=== PATIENT | female | born 1960 | race African-American/Black ===

== ENCOUNTER 2021-05-08 07:55 | Emergency (ER) | payer MEDICAID ==
[~2021-05-08] VITALS: Ht 162.6 cm; Wt 86.8 kg
[~2021-05-08 07:55] MED LIST: ACTOS30 MG PO; ASPIRIN 81M81 MG/TA2; ASPIRIN 81M81 MG/TA2 PO; BACTRIM DS 8001 TAB PO; COREG 3.123.125 MG/T PO; GLIPIZIDE5 MG PO; GLUCOPHAGE1000 MG PO; GLUCOTROL 5M5 MG/TAB PO; GLUCOTROL XL5 MG/TAB PO; HCTZ 25MG TAB25 MG PO; HCTZ12.5TAB PO; JANUVIA50 MG PO; LIPITOR 40MG TA40 MG PO; LISINOPRIL10 MG PO; NAPROSYN500 MG PO; NO HOME MEDICATIONS; NORCO 325 MG-51 TAB PO; NORVASC 10MG10 MG PO; NORVASC2.5 MG PO; PEPCID 20MG TAB20 MG PO; PLAVIX 75MG TAB75 MG PO; PRINIVIL10 MG PO; TESSALON PERLE200 MG PO; ULTRAM 50MG TAB50 MG PO; UNABLE; ZESTRIL30 MG PO; ZOCOR 20MG20 MG PO
[2021-05-08 07:56] VITALS: TEMP 98.2
[2021-05-08 09:42] LABS: BASO % 0.5 % (0.0-2.0); EOS # 0.2 (0.0-0.7); EOS % 3.2 % (0-4.0); GRAN # 3.6 (1.4-6.5); GRAN % 54.8 % (42.2-75.2); HEMATOCRIT 35.8 % (37.0-47.0); HEMOGLOBIN 11.5 g/dl (12.5-16.0); LYMPH # 2.2 (1.2-3.4); LYMPH % 33.3 % (20.0-51.0); MEAN CELL VOLUME 98 fl (80.0-100.0); MEAN CORPUSCULAR HEMOGLOBIN 32 pg (27.0-31.0); MEAN CORPUSCULAR HGB CONC 32 g/dl (33.0-37.0); MEAN PLATELET VOLUME 10.5 fl (7.4-10.4); MONO # 0.5 (0.1-0.6); PLATELET COUNT 335 K/mm3 (130-400); RED BLOOD COUNT 3.65 M/mm3 (4.10-5.30); REDCELL DISTRIBUTION WIDTH-CV 12.9 % (11.5-14.5)
[2021-05-08 09:49] LABS: PROTHROMBIN TIME 11.5 SECONDS (9.7-12.8)
[2021-05-08 09:56] LABS: ALANINE AMINOTRANSFERASE 10 U/L (4-34); ALBUMIN 4.2 gm/dL (3.5-5.0); ALKALINE PHOSPHATASE 56 U/L (50-136); ANION GAP 7 mmol/L (7-16); AST,SGOT 24 U/L (15-37); BILIRUBIN,TOTAL 0.3 mg/dL (0.0-1.0); BLOOD UREA NITROGEN 37 mg/dL (7-17); CALCIUM 9.6 mg/dL (8.4-10.2); CARBON DIOXIDE 23 mmol/L (22-30); CHLORIDE 105 mmol/L (98-107); CREATININE, serum 1.52 (0.52-1.25); GLUCOSE 189 mg/dL (74-106); POTASSIUM 5.4 mmol/L (3.4-5.0); SODIUM 135 mmol/L (137-145); TOTAL PROTEIN 8.2 gm/dL (6.4-8.2)
[2021-05-08 10:05] LABS: C-REACTIVE PROTEIN < 0.5 mg/dL (0.0-0.9)
[2021-05-08 10:26] LABS: TROPONIN-I < 0.012 ng/mL (0.000-0.035)
[2021-05-08] MEDS ORDERED: PRINIVIL20 MG PO (12:43)
[2021-05-08] MEDS ORDERED: LYRICA 100MG C100 M1 PO (12:43)
[2021-05-08] MEDS ORDERED: JANUVIA 100MG100 MG PO (12:44)
[2021-05-08] MEDS ORDERED: AMARYL 2MG T2 MG/TAB PO (12:45)
[2021-05-08] MEDS ORDERED: ROXICODONE 55 MG/TAB PO (12:45)
[2021-05-08 19:32] VITALS: BP 11/79; PULSE 85
[2021-09-03] MEDS ORDERED: CIPRO 250MG TA250 MG PO (16:48)
== END 2021-05-08 14:33 | disposition short-term general hospital (02) ==
LOC: COL.ER 07:55
PROVIDERS: Emergency Medicine
DX: E11.51 Type 2 diabetes mellitus with diabetic peripheral angiopathy without gangrene (principal); I70.202 Unspecified atherosclerosis of native arteries of extremities, left leg; E11.40 Type 2 diabetes mellitus with diabetic neuropathy, unspecified; N28.9 Disorder of kidney and ureter, unspecified; I10 Essential (primary) hypertension; F17.210 Nicotine dependence, cigarettes, uncomplicated; Z86.73 Personal history of transient ischemic attack (TIA), and cerebral infarction without residual deficits; Z79.899 Other long term (current) drug therapy; Z79.84 Long term (current) use of oral hypoglycemic drugs
CPT/HCPCS: J1644; J7030

== ENCOUNTER 2021-07-22 09:13 | Inpatient (IN) | payer MEDICAID ==
[~2021-07-22] VITALS: Ht 167.6 cm; Wt 84.1 kg
[~2021-07-22 09:13] MED LIST changes: +AMARYL 2MG T2 MG/TAB PO; +JANUVIA 100MG100 MG PO; +LYRICA 100MG C100 M1 PO; +PRINIVIL20 MG PO; +ROXICODONE 55 MG/TAB PO
[2021-07-22 09:39] LABS: COLLECTION METHOD CLEAN CATCH
[2021-07-22 09:57] LABS: BASO % 0.6 % (0.0-2.0); EOS # 0.3 (0.0-0.7); EOS % 3.6 % (0-4.0); GRAN # 4.7 (1.4-6.5); GRAN % 65.6 % (42.2-75.2); LYMPH # 1.5 (1.2-3.4); LYMPH % 20.6 % (20.0-51.0); MEAN CELL VOLUME 95 fl (80.0-100.0); MEAN CORPUSCULAR HEMOGLOBIN 31 pg (27.0-31.0); MEAN CORPUSCULAR HGB CONC 33 g/dl (33.0-37.0); MEAN PLATELET VOLUME 10.9 fl (7.4-10.4); MONO # 0.7 (0.1-0.6); MONO % 9.3 % (1.7-9.3); PLATELET COUNT 344 K/mm3 (130-400); PROTHROMBIN TIME 11.2 SECONDS (9.7-12.8); REDCELL DISTRIBUTION WIDTH-CV 12.5 % (11.5-14.5)
[2021-07-22 10:00] LABS: PARTIAL THROMBOPLASTIN TIME 35.1 SECONDS (26.0-37.0)
[2021-07-22 10:02] LABS: MUCOUS Present /lpf; PH 7 (5-8); SQUAMOUS EPITHELIAL 0-2 /hpf; URINE APPEARANCE Clear; URINE BACTERIA None Seen /hpf; URINE BILIRUBIN Negative (NEGATIVE); URINE BLOOD 1+ (NEGATIVE); URINE COLOR Yellow; URINE GLUCOSE Negative (NEGATIVE); URINE KETONE Negative (NEGATIVE); URINE LEUKOCYTE ESTERASE Negative (NEGATIVE); URINE NITRATE Negative (NEGATIVE); URINE PROTEIN(semi-quant) Negative (NEGATIVE); URINE RBC 0-2 /hpf; URINE UROBILINOGEN Negative (NEGATIVE)
[2021-07-22 10:03] LABS: HEMATOCRIT 30.4 % (37.0-47.0)
[2021-07-22 10:09] LABS: ALCOHOL(ethanol),MEDICAL < 10 mg/dL; C-REACTIVE PROTEIN 0.6 mg/dL (0.0-0.9)
[2021-07-22 10:10] LABS: TROPONIN-I < 0.012 ng/mL (0.000-0.035)
[2021-07-22 10:10] LABS: TRICYCLIC ANTIDEPRESS URINE NEGATIVE
[2021-07-22 11:29] LABS: ALANINE AMINOTRANSFERASE 11 U/L (4-34); ALBUMIN 3.9 gm/dL (3.5-5.0); ALKALINE PHOSPHATASE 45 U/L (50-136); ANION GAP 7 mmol/L (7-16); AST,SGOT 25 U/L (15-37); BILIRUBIN,TOTAL 0.5 mg/dL (0.0-1.0); BLOOD UREA NITROGEN 15 mg/dL (7-17); CALCIUM 8.3 mg/dL (8.4-10.2); CARBON DIOXIDE 28 mmol/L (22-30); CHLORIDE 104 mmol/L (98-107); GLUCOSE 138 mg/dL (74-106); SODIUM 139 mmol/L (137-145); TOTAL PROTEIN 7.7 gm/dL (6.4-8.2)
[2021-07-22 11:32] LABS: POTASSIUM 4.4 mmol/L (3.4-5.0)
[2021-07-22 12:13] LABS: TSH w REFLEX 1.367 uIU/mL (0.350-4.940)
[2021-07-22 14:23] VITALS: BP 139/84; PULSE 84; TEMP 98.7
--- NOTE | 2021-07-22 15:30 | NUR ---
PT ARRIVES TO MEDICAL FLOOR ROOM 353 AT 1425 BY ED STAFF VIA BED. PT A/OX4, PT APHASAIC, PT ABLE TO EXPRESS NEEDS AND USE CALL LIGHT, PT'S RIGHT EYE REMAINS CLOSED, DIFFICULT FOR PT TO KEEP OPEN, NO VISIBLE FACIAL DROOPING AT THIS TIME. PT DENIES PAIN BUT REPORTS GENERAL WEAKNESS,PT ABLE TO AMBULATE TO BED (SLIDE) WITH SBA, MED REC COMPLETE. ASSESMENT COMPLETE. PT ORIENTED TO FACILITY AND ROOM. THIS NURSE REVIWED S/S TO REPORT. PT VERBALIZES UNDERSTANDING. ALL NEEDS MET AT THIS TIME. THIS NURSE WILL CONTINUE TO MONITOR. CALL LIGHT WITHIN REACH.
[2021-07-22 16:39] VITALS: BP 132/63; PULSE 86; TEMP 98.3
--- NOTE | 2021-07-22 18:16 | NUR ---
PT REMAINS A/OX4, VSS, 02 ROOM AIR. RIGHT WEAKNESS NOTED, UNSTEADY GAIT, ALL PT'S QUESTIONS ANSWERED. POC REVIEWED WITH PT. PT VERBALIZES UNDERSTANDING. CALL LIGHT WTIHIN REACH.
[2021-07-22 20:30] VITALS: BP 142/70; PULSE 88; TEMP 98
--- NOTE | 2021-07-22 20:53 | NUR ---
DROWSY AND LETHARGIC. LARGE UNCONTROLLED DIARHEA. NEURO CHECK, ASSESSMENT COMPLETE. NPO UNTIL ST EVALS. BLOOD SUGAR 80, INR. DENIES SOA, CHEST PAIN OR DIZZY. LOWER BACK PAIN CANT RATE. LOVENOX FOR VTE. CALL LIGHT WI REACH. BED IN LOW POSITON. NEEDS MET.
[2021-07-22 23:42] VITALS: BP 140/68; PULSE 75; TEMP 97.9
[2021-07-23 03:44] VITALS: BP 138/70; PULSE 77; TEMP 97.9
--- NOTE | 2021-07-23 05:27 | NUR ---
PT SLEPT THROUGH THE NIGHT WITHOUT INCIDENT. NEEDS MET.
[2021-07-23 06:40] LABS: BASO # 0.1 (0.0-0.2); BASO % 0.7 % (0.0-2.0); EOS # 0.2 (0.0-0.7); EOS % 2.8 % (0-4.0); GRAN # 4.2 (1.4-6.5); GRAN % 60.1 % (42.2-75.2); HEMOGLOBIN 10.4 g/dl (12.5-16.0); LYMPH # 1.8 (1.2-3.4); MEAN CELL VOLUME 96 fl (80.0-100.0); MEAN CORPUSCULAR HEMOGLOBIN 31 pg (27.0-31.0); MEAN CORPUSCULAR HGB CONC 33 g/dl (33.0-37.0); MONO # 0.7 (0.1-0.6); MONO % 10.5 % (1.7-9.3); RED BLOOD COUNT 3.34 M/mm3 (4.10-5.30); REDCELL DISTRIBUTION WIDTH-CV 12.6 % (11.5-14.5)
[2021-07-23 06:42] LABS: PLATELET COUNT 237 K/mm3 (130-400)
[2021-07-23 09:09] LABS: CHOLESTEROL RISK RATIO 2.6
[2021-07-23 09:15] VITALS: BP 129/62; PULSE 78; TEMP 98.4
[2021-07-23 11:41] VITALS: BP 132/58; PULSE 79; TEMP 98.8
--- NOTE | 2021-07-23 13:00 | NUR ---
Marli met with the pt who stated her preference to return home to her apartment once medically sable. The pt is independent on all ALDS and uses a cane,walker sometimes. The pt NK is her daughter, Aminata ph# [phone]. The gets her medications from [facility] and her pcp is through [facility].The pt does not have a DPOA-HC, and is not interested in one at this time. No other needs stated at this time. Marli to await further recommendations and follow up as needed. D/c: Home.
[2021-07-23 15:22] LABS: T3 TOTAL 0.8 ng/mL (0.35-1.93)
[2021-07-23 16:34] VITALS: BP 130/64; PULSE 79; TEMP 99.1
--- NOTE | 2021-07-23 18:20 | NUR ---
PT HAD UNEVENTFUL DAY, THIS NURSE HELPED PT SHOWER, PT HAD DIAHHREA THIS MORNING, MEDICATION ADMINISTERED ORDERED. RIGHT SIDE REMAINS WEAK, RIGHT EYE REMAINS CLOSED AND DIFFICULT TO OPEN. PT INCONINENT OF BOWEL AND BLADDER. PT CLEAN AND LINENS CHANGED. ALL NEEDS MET. CALL LIGHT WITHIN REACH.
[2021-07-23 19:43] VITALS: BP 115/51; PULSE 75; TEMP 99.3
--- NOTE | 2021-07-23 20:33 | NUR ---
ALERT AND OX3. DROWSY- DENIES SOA, CHEST PAIN OR DIZZY. NEURO- RT SIDE WEAKNESS AND EYE NO OPENING. DENIES GENERALIZED PAIN. POC DISCUSSED. PM MEDS GIVEN. CALL LIGHT WI REACH. BED IN LOW POSTION. NEEDS MET.
[2021-07-23 23:55] VITALS: BP 114/61; PULSE 92; TEMP 99.3
[2021-07-24 04:43] VITALS: BP 132/62; PULSE 85; TEMP 99.3
--- NOTE | 2021-07-24 05:08 | NUR ---
Rested through the night without incident. Needs met.
[2021-07-24 07:16] VITALS: BP 138/75; PULSE 93; TEMP 99.1
--- NOTE | 2021-07-24 09:50 | NUR ---
PT TRANSPORTED TO MRI AT 0955 BY EMS VIA WHEELCHAIR.
[2021-07-24 11:57] VITALS: BP 125/62; PULSE 79; TEMP 98.2
--- NOTE | 2021-07-24 12:00 | NUR ---
PT UP TO MEDICAL FLOOR AT 1145 VIA EMS.
--- NOTE | 2021-07-24 13:36 | NUR ---
Initial visit; Patient and family member thanked Construction Project Mgr for looking in on her and offering spiritual care. Patient requested that Construction Project Mgr keep her in her prayers.
--- NOTE | 2021-07-24 14:10 | NUR ---
PT DISCHARGED, PT TRANSPORTED VIA WHEELCHAIR BY MEDICAL STAFF AND ACCOMPANIED BY HER FIANCE. PT PROVIDED DISCHARGE INSTRUCTIONS, PT VERBALIZES UNDERSTANDING. ALL QUESTIONS ANSWERED. ALL NEEDS MET.
[2021-07-24 15:16] VITALS: BP 126/61; PULSE 95; TEMP 99.7
--- NOTE | 2021-07-24 18:18 | NUR ---
PT REMAINS INCONTINENT OF BOWEL AND BLADDER, PT CHANGED, LINENS CHANGED. PT REMAINS WEAK ON THE RIGHT SIDE, MILD RIGHT FACIAL DROOPING WITH RIGHT EYE COMPLETELY CLOSED AND DIFFICULT TO OPEN. PT APPETITE GREAT. 02 REMAINS ROOM AIR. PT DENIES PAIN, N,V,D. ALL NEEDS MET. CALL LIGHT WITHIN REACH.
[2021-07-24 19:25] VITALS: BP 114/67; PULSE 81; TEMP 99
--- NOTE | 2021-07-24 20:00 | NUR ---
Assessment complete. Patient is oriented but is very drowsy; she has just woken up from a nap. She tolerates swallowing medications well. Her right-sided facial droop has improved in her mouth but her right eye remains shut with a slow-reacting pupil. Science Editor strengths are both strong. No edema is noted. Patient denies pain. HR is normal/regular and lungs have wheezes throughout. Call light in reach and bed alarm set, will continue to monitor.
[2021-07-24 22:36] VITALS: BP 126/67; PULSE 79; TEMP 98.4
[2021-07-25 04:00] VITALS: BP 107/61; PULSE 76; TEMP 98.2
[2021-07-25 07:23] LABS: BASO % 0.4 % (0.0-2.0); EOS # 0.2 (0.0-0.7); GRAN # 4.3 (1.4-6.5); GRAN % 59.2 % (42.2-75.2); LYMPH # 1.9 (1.2-3.4); MEAN CELL VOLUME 95 fl (80.0-100.0); MEAN CORPUSCULAR HGB CONC 32 g/dl (33.0-37.0); MEAN PLATELET VOLUME 11.1 fl (7.4-10.4); MONO # 0.8 (0.1-0.6); MONO % 11.1 % (1.7-9.3); PLATELET COUNT 302 K/mm3 (130-400); RED BLOOD COUNT 3.21 M/mm3 (4.10-5.30); REDCELL DISTRIBUTION WIDTH-CV 12.3 % (11.5-14.5)
[2021-07-25 07:25] LABS: HEMATOCRIT 30.6 % (37.0-47.0); HEMOGLOBIN 9.9 g/dl (12.5-16.0); MEAN CORPUSCULAR HEMOGLOBIN 31 pg (27.0-31.0)
[2021-07-25 07:35] LABS: CALCIUM 8.4 mg/dL (8.4-10.2); CREATININE, serum 1.38 (0.52-1.25); POTASSIUM 4.2 mmol/L (3.4-5.0)
[2021-07-25 08:12] VITALS: BP 134/66; PULSE 67; TEMP 98.1
--- NOTE | 2021-07-25 09:00 | NUR ---
Shift assessment complete. Pt lying in bed, A&Ox4. Unable to open right eye but no other facial droop noted. Hand bar pointer equal. Does report still feeling some weakness to right side but muscle strength appears equal bilaterally. Does report some soreness to hips as well, worse w/walking. Hospitalist contacted about orders for pain medication. Continuing to monitor.
[2021-07-25] MEDS ORDERED: PLAVIX 75MG TAB75 MG PO (10:57)
[2021-07-25] MEDS ORDERED: ASPIRIN E.C. 8181 MG PO (10:58)
[2021-07-25 12:29] VITALS: BP 125/65; PULSE 69; TEMP 98
--- NOTE | 2021-07-25 13:06 | NUR ---
Estrellita, IPR Director, reports that she received a consult on the patient and has submitted for auth to the patient's insurance. Awaiting insurance auth.
[2021-07-25 16:06] VITALS: BP 142/66; PULSE 74; TEMP 98.2
[2021-07-25 19:32] VITALS: BP 131/74; PULSE 84; TEMP 98.5
[2021-07-25 23:30] VITALS: BP 135/68; PULSE 74; TEMP 98.3
[2021-07-26 05:04] VITALS: BP 149/73; PULSE 69; TEMP 98.5
[2021-07-26 07:42] VITALS: BP 152/66; PULSE 80; TEMP 98.6
--- NOTE | 2021-07-26 09:22 | NUR ---
Incontinent care provided this morning by this RN and off-going senior systems engineer RN. Patient remains incontinent and had saturated the pull-up, as well as the incontinent pad. Patient was insistent on standing up but was very unsteady. Patient was able to lift her hips for incontinent care. All morning medications administered without difficulty. Patient has no complaints at this time and should go to [facility] today.
[2021-07-26 11:27] VITALS: BP 164/87; PULSE 76; TEMP 98.4
[2021-07-26 14:13] LABS: CALCIUM 9.3 mg/dL (8.4-10.2); CREATININE, serum 1.4 (0.52-1.25); POTASSIUM 4.5 mmol/L (3.4-5.0)
--- NOTE | 2021-07-26 15:07 | NUR ---
Estrellita, IPR Director, reports that she received approval from the patient's insurance and is able to accept the patient today. The patient is to discharge today, 07/26, to [facility]. No additional needs at this time.
[2021-07-26 17:18] VITALS: BP 149/63; PULSE 78; TEMP 98.3
[2021-09-03] MEDS ORDERED: CIPRO 250MG TA250 MG PO (16:48)
== END 2021-07-26 18:46 | DRG 66 ==
LOC: COL.ER 09:13 → MEDICAL 13:24
PROVIDERS: Emergency Medicine; Physician Assistant; Psychiatry & Neurology Neurology; ADMIT Internal Medicine
DX: I63.9 Cerebral infarction, unspecified (principal); E11.319 Type 2 diabetes mellitus with unspecified diabetic retinopathy without macular edema; E78.5 Hyperlipidemia, unspecified; F17.210 Nicotine dependence, cigarettes, uncomplicated; I12.9 Hypertensive chronic kidney disease with stage 1 through stage 4 chronic kidney disease, or unspecified chronic kidney disease; N18.30 Chronic kidney disease, stage 3 unspecified; R47.01 Aphasia; R47.81 Slurred speech; H49.01 Third [oculomotor] nerve palsy, right eye; R29.810 Facial weakness; R29.705 NIHSS score 5; E11.51 Type 2 diabetes mellitus with diabetic peripheral angiopathy without gangrene; Z79.899 Other long term (current) drug therapy; Z79.84 Long term (current) use of oral hypoglycemic drugs; Z79.82 Long term (current) use of aspirin; Z79.891 Long term (current) use of opiate analgesic
CPT/HCPCS: 99232-AI; 99233-AI; 99239; A9585; J1650; J1815; Q9967

== ENCOUNTER 2021-07-26 15:10 | Inpatient (IN) | payer MEDICAID ==
[~2021-07-26] VITALS: Ht 167.6 cm; Wt 81.8 kg
[~2021-07-26 15:10] MED LIST changes: +ASPIRIN E.C. 8181 MG PO
[2021-07-26 20:45] VITALS: BP 1436/77; PULSE 69; TEMP 98.7
[2021-07-27 03:38] VITALS: BP 127/64; PULSE 78; TEMP 98.9
--- NOTE | 2021-07-27 06:40 | NUR ---
Rested well this shift. Denied pain/nausea/shortness of breath. VS remained stable. Incontinent of urine. IPR status patient. Call light in reach/bed alarm on. WIll monitor.
--- NOTE | 2021-07-27 13:23 | NUR ---
Welcomed pt to the Rehab unit. Explained the rehab process & goals. Completed SW assessment w/ pt. She is alert & oriented & able to communicate her needs & wants to others. She has her own teeth & does not wear glasses . She lives alone but plans on moving in w/ her daughter, who has a 2 story home w/ 4 steps to enter w/ handrail on the left. Once in the house pt can live on the main level. The bathroom has a tub/shower w/ curtain & handheld shower head. The toilet is standard height. Pt reports walking w/out a device & was independent w/ her self care. She also reports doing the cooking, housekeeping, laundry, shopping, medication management, & finance management. She has her own r/walker. Pharmacy: [facility] & reports no issues/concerns w/ affording her medication. PCP: Dr. Escalante DPOA: Pt does not have official POA paperwork but would like her daughter, Aminata, to be her novelties sales representative & would like paperwork to complete. Pt had no questions/concerns at this time about her rehab stay. SW will continue to follow to provide support & assist w/ d/c planning.
--- NOTE | 2021-07-27 14:26 | NUR ---
Primary nurse was assisted with [id number] patient care by [facility] student Dalton Lewis and [facility] instructor Karis Ramires MSN, RN
--- NOTE | 2021-07-27 16:55 | NUR ---
PT TRANSFERED TO ROOM 339. REPORT FROM JOSE GASTON. PT IS A/O X3 WITH MILD LEFT SIDED DEFICIT. RIGHT EYE DROOP CLOSED.
[2021-07-27 18:24] VITALS: BP 150/71; PULSE 72; TEMP 97.8
--- NOTE | 2021-07-27 19:13 | NUR ---
RECEIVED CHANGE OF SHIFT REPORT FROM DAY SHIFT NURSE.
--- NOTE | 2021-07-27 21:00 | NUR ---
PATIENT REFUSED SCDs.
--- NOTE | 2021-07-27 23:01 | NUR ---
EXIT ALARMS ON WHEN IN BED, CALL LIGHT WITHIN REACH. ENCOURAGED PATIENT TO HAVE HS SNACK DAILY NEEDED. DENIES CHEST PAIN/SOA. DENIES NUMBNESS/TINGLING TO EXTREMITIES AT THIS TIME.
[2021-07-28 05:16] VITALS: BP 135/79; PULSE 76; TEMP 98.4
--- NOTE | 2021-07-28 06:57 | NUR ---
Report received from ALEK Sung. Patient is sleeping in bed. Call light and bedside table are within reach. Will continue to monitor throughout shift.
--- NOTE | 2021-07-28 07:27 | NUR ---
CHANGE OF SHIFT REPORT GIVEN TO DAY SHIFT NURSE, MARIELLA GASTON.
[2021-07-28 18:19] VITALS: BP 145/71; PULSE 83; TEMP 98.6
--- NOTE | 2021-07-28 19:21 | NUR ---
RECEIVED CHANGE OF SHIFT REPORT FROM DAY SHIFT NURSE.
--- NOTE | 2021-07-29 | NUR ---
PATIENT HAD LARGE EMESIS OF UNDIGESTED FOOD WHEN ATTEMPTING TO EAT HS SNACK, REPORTS NO FURTHER NAUSEA AFTER EMESIS. DENIES CHEST PAIN/SOA SO FAR THIS SHIFT. DENIES NUMBNESS/TINGLING TO EXTREMITIES THIS SHIFT. DENIES ANY DISCOMFORT AT THIS TIME. EXIT ALARMS ON WHEN IN BED WITH CALL LIGHT WITHIN REACH.
[2021-07-29 04:21] VITALS: BP 110/58; PULSE 73; TEMP 98.6
--- NOTE | 2021-07-29 06:55 | NUR ---
Report received from ALEK Montes. Patient is resting in bed. Reported by JUSTYN Murguia that patient's BG was 57 and she gave her orange juice and crackers and will retake BS at 0700. Call light and bedside table are within reach. Will continue to monitor patient throughout shift.
--- NOTE | 2021-07-29 07:12 | NUR ---
CHANGE OF SHIFT REPORT GIVEN TO DAY SHIFT NURSE, MARIELLA GASTON.
--- NOTE | 2021-07-29 15:02 | NUR ---
Patient is in bed resting. Patient has had no episodes of incontinence today. Patient states she still does not know when she has to use the bathroom but sat on toilet until she was able to produce. Call light and bedside table are within reach.
[2021-07-29 18:00] VITALS: BP 135/82; PULSE 73; TEMP 98.1
--- NOTE | 2021-07-29 19:29 | NUR ---
RECEIVED CHANGE OF SHIFT REPORT FROM DAY SHIFT NURSE. EXIT ALARMS ON WHEN IN BED OR UP IN CHAIR. CALL LIGHT WITHIN REACH.
[2021-07-30 05:28] VITALS: BP 110/54; PULSE 72; TEMP 98.4
--- NOTE | 2021-07-30 07:03 | NUR ---
CHANGE OF SHIFT REPORT GIVEN TO DAY SHIFT NURSE, NATHANIEL GASTON. DENIED CHEST PAIN/SOA AND NUMBNESS/TINGLING TO EXTREMITIES THIS SHIFT. EXIT ALARMS IN USE WHEN IN BED OR UP IN CHAIR WITH CALL LIGHT IN PLACE. ENCOURAGED PATIENT TO CONTINUES TO WORK ON GOOD NUTRITIONAL INTAKE.
--- NOTE | 2021-07-30 07:09 | NUR ---
shift report received from ALEK Hernandez
--- NOTE | 2021-07-30 08:15 | NUR ---
physical therapy in to work with patient
--- NOTE | 2021-07-30 09:15 | NUR ---
resting in recliner after therapy, full assessment completed, see interventions for further info
--- NOTE | 2021-07-30 10:30 | NUR ---
remains up in recliner, denies needs
--- NOTE | 2021-07-30 11:20 | NUR ---
assisted back to bed per her rerquest to rest a while
--- NOTE | 2021-07-30 13:04 | NUR ---
ambulating in rodriguez with physical therapy
--- NOTE | 2021-07-30 13:31 | NUR ---
Visited w/ pt, who stated she is doing okay. Inquired how thearpy has been going & was told okay. She did ask SW how long she will be here & told her the team meets 08/01/21, to discuss this & then SW will talk w/ her & her daughter. She seemed fine w/ this plan & had no other questions/concerns.
--- NOTE | 2021-07-30 14:01 | NUR ---
occupational therapy in to work with patient
--- NOTE | 2021-07-30 14:54 | NUR ---
returned fdrom therapy and had scant amount of emesis, states after lunch her tummy was upset, will monitor
--- NOTE | 2021-07-30 15:05 | NUR ---
Admission QIM scores were reviewed by the team. Code of 4 chosen for oral hygiene was determined by team discussion to be the most usual performance before interventions for this patient during the assessment period. Code of 4 chosen for toilet hygiene was determined by team discussion to be the most usual performance for this patient during the assessment period. Code of 3 chosen for toileting transfers was determined by team discussion to be the most usual performance for this patient during the assessment period. Code of 4 chosen for sit to lying was determined by team discussion to be the most usual performance for this patient during the assessment period. Code of 4 chosen for lying to sitting on side of bed was determined by team discussion to be the most usual performance for this patient during the assessment period. Code of 3 for chair/bed to chair transfers was determined by team discussion to be the most usual performance for this patient during the assessment period.--Estrellita Lopez, PD
--- NOTE | 2021-07-30 16:24 | NUR ---
appears to be sleeping, in bed with eyes closed, resp quiet and easy
[2021-07-30 17:32] VITALS: BP 133/73; PULSE 89; TEMP 97.9
--- NOTE | 2021-07-30 19:11 | NUR ---
shift report given to ALEK Webb
[2021-07-31 05:41] VITALS: BP 107/66; PULSE 84; TEMP 98.6
--- NOTE | 2021-07-31 05:42 | NUR ---
PATIENT HAD A MODERATE EMESIS OF PARTIALLY UNDIGESTED FOOD AND MOSTLY THIN LIQUIDS AT THIS TIME, STATES THAT SHE DOES NOT FEEL NAUSEOUS ANYMORE AT THIS TIME
--- NOTE | 2021-07-31 07:05 | NUR ---
Report received by ALEK Webb. Patient is resting in bed and called to use bathroom. Patient had a soft formed BM. Patient continues to c/o pain in thighs. Call light and bedside table are within reach. Will continue to monitor throughout shift.
--- NOTE | 2021-07-31 13:47 | NUR ---
[facility] skilled labor was unable to draw blood from patient.
--- NOTE | 2021-07-31 14:56 | NUR ---
Third clinical laboratory scientist and ALEK Gaston tried to draw blood from patient unsucessfully. This nurse informed the head housekeeper of the situation and for guidance; she was unsure as to how to proceed.
--- NOTE | 2021-07-31 15:20 | NUR ---
Patient has completed all therapies and is resting in bed. Patient denies pain at this time. Call light and bedside table are within reach.
[2021-07-31 16:36] VITALS: BP 118/73; PULSE 81; TEMP 98.3
--- NOTE | 2021-07-31 21:00 | NUR ---
Initial shift assessment done- has been sleeping for the past couple hours and had to wake her for meds/blood sugar,, states feels ok tonight, blood sugar was 142-does not want any snacks tonight, right eye does remain closed when left eye is open- equal hand grasps, Up to bathroom with standby assist w/walker-states having some loose stools- will continue to monitor,,, back to bed- no other requests.
--- NOTE | 2021-08-01 04:24 | NUR ---
Up to bathroom with assist,did have small amount liquid stool,was also incontinent of small amount of stool-- unstaeady gait, using walker/assist,, states having hip pain thats why shes not walking steady--will give Tylenol as ordered. Right eye a little more open this morning. Has been sleeping well tonight between bathroom breaks.
[2021-08-01 05:45] VITALS: BP 113/58; PULSE 79; TEMP 98.7
--- NOTE | 2021-08-01 06:45 | NUR ---
Report received from ALEK Toussaint. Patient is sleeping in bed. Call light and bedside table are within reach. Will continue to monitor throughout shift.
[2021-08-01 09:53] LABS: BASO % 0.5 % (0.0-2.0); EOS # 0.2 (0.0-0.7); EOS % 3.5 % (0-4.0); GRAN # 3.7 (1.4-6.5); GRAN % 58.5 % (42.2-75.2); LYMPH # 1.7 (1.2-3.4); MEAN CELL VOLUME 98 fl (80.0-100.0); MEAN CORPUSCULAR HEMOGLOBIN 31 pg (27.0-31.0); MEAN CORPUSCULAR HGB CONC 32 g/dl (33.0-37.0); MEAN PLATELET VOLUME 10.8 fl (7.4-10.4); MONO # 0.7 (0.1-0.6); MONO % 11.2 % (1.7-9.3); PLATELET COUNT 369 K/mm3 (130-400); RED BLOOD COUNT 3.23 M/mm3 (4.10-5.30); REDCELL DISTRIBUTION WIDTH-CV 12.3 % (11.5-14.5)
[2021-08-01 09:54] LABS: HEMATOCRIT 31.5 % (37.0-47.0)
[2021-08-01 10:12] LABS: CALCIUM 9.4 mg/dL (8.4-10.2); CREATININE, serum 2.08 (0.52-1.25); MAGNESIUM 1.7 mg/dL (1.6-2.3); POTASSIUM 4.9 mmol/L (3.4-5.0)
--- NOTE | 2021-08-01 14:47 | NUR ---
Patient has completed all therapies for the day and is sleeping in bed. Call light and bedside table are within reach.
--- NOTE | 2021-08-01 16:06 | NUR ---
Reviewed the team conference notes w/ pt. She stated that she understood & agreed w/ current level of functioning. Informed her of d/c for next 08/08/21, w/ recommendations of home health PT/OT/ST. Told her the team is also recommending grab bars & tub transfer bench. She did not have any quesitons at this time.
[2021-08-01 17:34] VITALS: BP 103/77; PULSE 81; TEMP 97.7
--- NOTE | 2021-08-01 19:30 | NUR ---
RECEIVED CHANGE OF SHIFT REPORT FROM DAY SHIFT NURSE.
--- NOTE | 2021-08-01 22:30 | NUR ---
PATIENT COMPLAINED OF DIZZINESS AFTER AMBULATING TO BATHROOM, PATIENT WAS SITTING DOWN ONTO TOILET. SKIN DRY, SPEECH CLEAR, PATIENT WITH EYE CONTACT WITH STAFF ON COMMAND AND ANSWERED QUESTIONS APPROPRIATELY WITH DIZZINESS. FSBS CHECKED AT 102 BUT HAD ALSO SIPPED ON DIET SPRITE JUST PRIOR TO FSBS TESTING. PATIENT ENCOURAGED TO HAVE HS SNACK OF 240 ML OJ WITH 1 SLICE JELLIED TOASTED WHITE BREAD. DENIED CHEST PAIN/SOA AND DENIED NUMBNESS/TINGLING TO EXTREMITIES AT THIS TIME.
--- NOTE | 2021-08-02 03:18 | NUR ---
PATIENT SLEEPING, DOES NOT WAKE WHEN ROOM ENTERED BY STAFF ON ROUNDS. BREATHING NONLABORED AND EVEN. EXIT ALARM ON WITH CALL LIGHT WITHIN REACH.
[2021-08-02 05:04] VITALS: BP 106/56; PULSE 75; TEMP 98.8
--- NOTE | 2021-08-02 07:44 | NUR ---
CHANGE OF SHIFT REPORT GIVEN TO DAY SHIFT NURSE, MILY GASTON.
--- NOTE | 2021-08-02 13:05 | NUR ---
Visited w/ pt & inquired if she had any questions about the team conference notes from yesterday. She told SW that she did not. Talked to her about the team's recommendation for home health therapy at d/c & provided her a list of agency's for the [facility].
[2021-08-02 16:55] VITALS: BP 126/85; PULSE 78; TEMP 98.2
[2021-08-03 05:29] VITALS: BP 135/49; PULSE 78; TEMP 98.3
--- NOTE | 2021-08-03 05:45 | NUR ---
ASSISTED TO BR WITH WALKER. FAIRLY STEADY GAIT. INCONTINENT URINE. CHANGED LINENS. BACK TO BED. CALL LIGHT IN REACH BED ALARM SET.
[2021-08-03 16:20] VITALS: BP 122/76; PULSE 74; TEMP 98
--- NOTE | 2021-08-03 21:21 | NUR ---
Patient sleeping in bed upon enter the room. Patient awake easily with voice and touch. Patient denies any pain or discomfort. Scheduled meds given per MAR. Patient denies any needs at this time. Call light in reach. Bed alarms on. Will continue to monitor.
[2021-08-04 04:03] VITALS: BP 148/49; PULSE 71; TEMP 97.8
[2021-08-04 16:49] VITALS: BP 114/69; PULSE 77; TEMP 98.9
[2021-08-04 16:59] LABS: CALCIUM 9.7 mg/dL (8.4-10.2); CREATININE, serum 1.97 (0.52-1.25)
--- NOTE | 2021-08-04 20:00 | NUR ---
PT SLEEPY TONIGHT. DENIES C/O PAIN. NO NEEDS AT THIS TIME. CALL LIGHT IN REACH. BED ALARM SET.
--- NOTE | 2021-08-05 00:49 | NUR ---
ASSISTED PT TO BR. INCONTINENT URINE. ASSISTED CLEAN UP.BACK TO BED.
--- NOTE | 2021-08-05 02:45 | NUR ---
PT HAVING PELVIC PRESSURE W/ VOIDING AND ODOROUS URINE. CALLED EVELINA HEIN. SEE NEW ORDER FOR UAC.
--- NOTE | 2021-08-05 02:50 | NUR ---
UA OBTAINED PER CLEAN CATCH AND SENT TO LAB.
[2021-08-05 03:01] LABS: COLLECTION METHOD CATHETER
[2021-08-05 03:10] LABS: BUDDING YEAST Present /hpf; PH 7 (5-8); SQUAMOUS EPITHELIAL 0-2 /hpf; URINE APPEARANCE Turbid; URINE BACTERIA None Seen /hpf; URINE BILIRUBIN Negative (NEGATIVE); URINE BLOOD 1+ (NEGATIVE); URINE COLOR Yellow; URINE GLUCOSE Negative (NEGATIVE); URINE KETONE Negative (NEGATIVE); URINE LEUKOCYTE ESTERASE 3+ (NEGATIVE); URINE NITRATE Negative (NEGATIVE); URINE PROTEIN(semi-quant) 1+ (NEGATIVE); URINE UROBILINOGEN Negative (NEGATIVE)
--- NOTE | 2021-08-05 03:17 | NUR ---
NOTIFIED LAB THIS RECENT UA WAS CLEAN CATCH. NOT CATHETER OBTAINED.
--- NOTE | 2021-08-05 03:24 | NUR ---
SEE NEW ORDERS FOR MACROBID FOR UTI.
--- NOTE | 2021-08-05 04:12 | NUR ---
NEW ORDER FOR SEPTRA DS INSTEAD OF MACROBID. SEE MAR.
[2021-08-05 05:02] VITALS: BP 136/63; PULSE 69; TEMP 98
--- NOTE | 2021-08-05 07:30 | NUR ---
Assisted pt to the restroom. Reports that she feels as if she needs to urinate, but is unable to go only dribbles. Urine has a very strong odor to it. Pt does well with a walker and stand by assist. No pain complaints. Assisted pt to the chair for breakfast.
--- NOTE | 2021-08-05 07:50 | NUR ---
Pt up for breakfast. Assisted him to the restroom. He did well with standby assist. No pain complaints at this time. Pt dressed and ready for the day. Assisted pt back to the chair for breakfast. Speech is somewhat difficult to understand, but able to make out needs. Chair alarm on and call light within reach
--- NOTE | 2021-08-05 10:49 | NUR ---
Pt resting in bed, even non labored breathing. Bed alarm on and call light within reach
--- NOTE | 2021-08-05 12:16 | NUR ---
Assisted pt to the restroom. She is refusing to sit in the chair for lunch. Was not able to convince her to. Pt back in bed, sitting up eating lunch
[2021-08-05 17:09] VITALS: BP 135/74; PULSE 88; TEMP 97.9
--- NOTE | 2021-08-05 20:00 | NUR ---
PT RESTING. SLEEPING ALOT. ASSISTED TO BR WITH WALKER. INCONT IN BREIFS AND LINENS. HAS UTI. URINE VERY CLOUDY/MUCOUS. VERY ODOROUS. GETTING SEPTRA FOR UTI.
--- NOTE | 2021-08-05 21:00 | NUR ---
ACCUCHECK 70. ASYMPTOMATIC. PROVIDED SANDWICH AND A JUICE FOR HS SNACK.
--- NOTE | 2021-08-06 01:07 | NUR ---
RT EYE LID CONTINUES DROOPING. SPEECH SL DIFFICULT TO UNDERSTAND. PT HAD INCONT LOOSE STOOL. PT ALITTLE MORE UNSTEADY TONIGHT. NO OTHER CHANGES. PT NEEDED ASSIST WITH DONNING NEW BRIEFS OVER FEET UP TO KNEES AND WITH ENSURING GOOD PERIRECTAL HYGIENE.
[2021-08-06 05:24] VITALS: BP 126/67; PULSE 69; TEMP 97.8
--- NOTE | 2021-08-06 06:47 | NUR ---
Report received from ALEK Brennan. Patient is awake and resting in bed. Patient denies pain at this time. Call light and bedside table are within reach. Will continue to monitor patient throughout shift.
--- NOTE | 2021-08-06 12:54 | NUR ---
Follow-up visit; Patient thanked Public Health Technologist for looking in on her again. Kellie says she thinks she is getting better. Public Health Technologist wished her well and God's blessings.
--- NOTE | 2021-08-06 13:14 | NUR ---
GREER attended the patient/family meeting. The patient's daughter, Aminata, was at bedside. Also present was IPR Director, PT, and OT. IPR Director started by explaining the purpose of the meeting. PT/OT then discussed the patient's progress so far. IPR Director informed the patient and Aminata how a discharge date has been set for this Friday, 08/08. The patient has Medicaid and it does not pay for home health therapy. Outpatient PT/OT/ST is being recommended. The patient and Aminata are in agreement to the plan. The team answered all questions. GREER then followed up with the patient and Aminata and informed them that [facility] has all three disciplines. Aminata was in agreement to getting the patient set up there and they would prefer afternoon appointments. GREER contacted Shahla at [facility]. Shahla requests the patient's records and then they will contact this SW to make the appointments. GREER faxed the patient's records to [facility].
--- NOTE | 2021-08-06 15:06 | NUR ---
Patient has completed all therapies for the day and is resting in recliner. Daughter is at bedside. Call light and bedside table are within reach.
--- NOTE | 2021-08-06 16:30 | NUR ---
Regla, at [facility], contacted GREER back. The patient was secured an OT appointment on 08/10 at 1100, PT on 08/13 at 1400, and ST on 08/13 at 1530. GREER to inform the RN of the appointments. GREER will need to fax the patient's orders to [facility] [phone].
[2021-08-06 16:54] LABS: BASO % 0.4 % (0.0-2.0); EOS # 0.3 (0.0-0.7); EOS % 4.2 % (0-4.0); GRAN # 3.8 (1.4-6.5); GRAN % 53.8 % (42.2-75.2); LYMPH # 2.3 (1.2-3.4); LYMPH % 31.5 % (20.0-51.0); MEAN CELL VOLUME 98 fl (80.0-100.0); MEAN CORPUSCULAR HGB CONC 32 g/dl (33.0-37.0); MEAN PLATELET VOLUME 10.8 fl (7.4-10.4); MONO # 0.7 (0.1-0.6); MONO % 9.7 % (1.7-9.3); PLATELET COUNT 364 K/mm3 (130-400); RED BLOOD COUNT 3.18 M/mm3 (4.10-5.30); REDCELL DISTRIBUTION WIDTH-CV 12.5 % (11.5-14.5)
[2021-08-06 17:03] LABS: CALCIUM 9.5 mg/dL (8.4-10.2); CREATININE, serum 2.55 (0.52-1.25); HEMOGLOBIN 9.8 g/dl (12.5-16.0); MEAN CORPUSCULAR HEMOGLOBIN 31 pg (27.0-31.0); POTASSIUM 4.6 mmol/L (3.4-5.0)
[2021-08-06 17:04] VITALS: BP 138/73; PULSE 73; TEMP 98.1
--- NOTE | 2021-08-06 19:30 | NUR ---
RECEIVED CHANGE OF SHIFT REPORT FROM DAY SHIFT NURSE.
--- NOTE | 2021-08-07 00:38 | NUR ---
PATIENT SLEEPING, DOES NOT WAKE WHEN ROOM ENTERED BY STAFF NURSE ON ROUNDS. BREATHING NONLABORED AND EVEN. EXIT ALARM ON WHEN IN BED, WITH CALL LIGHT WITHIN REACH.
[2021-08-07 05:34] VITALS: BP 91/47; PULSE 66; TEMP 97.7
--- NOTE | 2021-08-07 06:19 | NUR ---
DENIED ANY NEEDS OR COMPLAINTS WHEN AWAKENED FOR VITALS CHECK EARLIER. EXIT ALARM ON WHEN SLEEPING IN BED WITH CALL LIGHT WITHIN REACH.
--- NOTE | 2021-08-07 07:11 | NUR ---
CHANGE OF SHIFT REPORT GIVEN TO DAY SHIFT NURSE, CHAS GATSON.
--- NOTE | 2021-08-07 07:20 | NUR ---
Pt up in the chair for breakfast. She was initially laying on her left side propped up eating in bed. Suggested and assisted her to the chair. She did have a hard time standing up and did need a full one assist for balance. Pt stated that her hips bother her with the right one being worse than the left. No other needs, verbalized, call light within reach and chair alarm on
[2021-08-07 16:35] VITALS: BP 149/80; PULSE 84; TEMP 98
--- NOTE | 2021-08-07 17:44 | NUR ---
Pt laid in bed most of the afternoon, occasionally up to the recliner. One incontinent episode of urine in bed. Pt SBA with walker, no episodes of losing balance this afternoon. IVF infusing without issues. Call light within reach, bed alarm in place.
--- NOTE | 2021-08-07 19:16 | NUR ---
RECEIVED CHANGE OF SHIFT REPORT FROM DAY SHIFT NURSE. EXIT ALARM ON WHEN IN BED WITH CALL LIGHT WITHIN REACH. IV IN PLACE AND INFUSING WITH NO PROBLEMS. PATIENT DENIES ANY NEEDS OR COMPLAINTS AT TIME OF REPORT. 1900 SNACK GIVEN TO PATIENT AND ENCOURAGED PATIENT TO DRINK SUPPLEMENT FOR FLUIDS AND BLOOD SUGAR BUT OBSERVED PATIENT SETTING SNACK DRINK TO SIDE OF OVERBED TABLE AT THIS TIME.
--- NOTE | 2021-08-08 02:00 | NUR ---
PATIENT AWAKE, REQUESTED/GIVEN APPLESAUCE. DENIES ANY OTHER NEEDS. EXIT ALARM ON WHEN IN BED WITH CALL LIGHT WITHIN REACH.
[2021-08-08 05:11] VITALS: BP 141/69; PULSE 69; TEMP 97.8
--- NOTE | 2021-08-08 06:43 | NUR ---
Report received from ALEK Montes. Patient is awake and resting in bed. Call light and bedside table are within reach. Will continue to monitor patient throughout shift.
[2021-08-08 06:51] LABS: BASO % 0.3 % (0.0-2.0); EOS # 0.4 (0.0-0.7); EOS % 6.6 % (0-4.0); GRAN # 3.4 (1.4-6.5); GRAN % 53.8 % (42.2-75.2); LYMPH # 1.8 (1.2-3.4); LYMPH % 28.5 % (20.0-51.0); MEAN CELL VOLUME 99 fl (80.0-100.0); MEAN CORPUSCULAR HGB CONC 31 g/dl (33.0-37.0); MEAN PLATELET VOLUME 11.2 fl (7.4-10.4); MONO # 0.6 (0.1-0.6); MONO % 10.3 % (1.7-9.3); PLATELET COUNT 369 K/mm3 (130-400); RED BLOOD COUNT 2.85 M/mm3 (4.10-5.30); REDCELL DISTRIBUTION WIDTH-CV 12.7 % (11.5-14.5)
[2021-08-08 07:01] LABS: HEMATOCRIT 28.3 % (37.0-47.0); HEMOGLOBIN 8.7 g/dl (12.5-16.0); MEAN CORPUSCULAR HEMOGLOBIN 31 pg (27.0-31.0)
[2021-08-08 07:10] LABS: CREATININE, serum 2.19 (0.52-1.25); POTASSIUM 4.6 mmol/L (3.4-5.0)
--- NOTE | 2021-08-08 07:30 | NUR ---
CHANGE OF SHIFT REPORT GIVEN TO DAY SHIFT NURSE, MARIELLA GASTON.
--- NOTE | 2021-08-08 16:11 | NUR ---
Due to the patient's medical status, her discharge was changed to this Friday, 08/10. GREER met with the patient and presented and reviewed the IPR Team Conference Note with her. The patient had no concerns for GREER. GREER contacted the patient's daughter, Aminata, to review d/c plan. The phone call dropped. GREER attempted to call her back and it went to voicemail. Aminata's voicemail box was full. GREER contacted [facility] [place] and rescheduled the patient's OT appointment on 08/22 at 1300. GREER to inform the patient's RN of the appointments.
[2021-08-08 17:09] VITALS: BP 134/69; PULSE 74; TEMP 99.8
--- NOTE | 2021-08-08 19:00 | NUR ---
RECEIVED CHANGE OF SHIFT REPORT FROM DAY SHIFT NURSE. PATIENT RESTING IN BED WITH EXIT ALARM ON AND CALL LIGHT WITHIN REACH. IVF INFUSING WITH NO PROBLEMS TO LEFT HAND IV. DENIES ANY DISCOMFORT DURING REPORT.
[2021-08-09 05:23] VITALS: BP 134/71; PULSE 72; TEMP 98.4
--- NOTE | 2021-08-09 07:40 | NUR ---
CHANGE OF SHIFT REPORT GIVEN TO DAY SHIFT NURSE, MARIELLA GASTON.
[2021-08-09 07:51] LABS: CALCIUM 8.5 mg/dL (8.4-10.2); CREATININE, serum 1.76 (0.52-1.25); POTASSIUM 4.6 mmol/L (3.4-5.0)
--- NOTE | 2021-08-09 08:30 | NUR ---
Report recieved from Jyoti GASTON. Patient is sleeping in bed. Call light and bedside table are within reach. Will continue to monitor throughout shift.
--- NOTE | 2021-08-09 14:40 | NUR ---
Patient has completed all therapies for the day and is resting in bed. Call light and bedside table are within reach.
--- NOTE | 2021-08-09 14:44 | NUR ---
GREER met with the patient to review the d/c plan for tomorrow, 08/10. The patient had no concerns for GREER about returning home with her daughter. GREER attempted to contact the patient's daughter, Aminata, again to review plan. GREER was unable to leave a voicemail, due to mailbox being full.
[2021-08-09 17:40] VITALS: BP 117/49; PULSE 78; TEMP 99
[2021-08-10 03:40] VITALS: BP 144/76; PULSE 75; TEMP 98.4
[2021-08-10 07:00] LABS: BASO % 0.3 % (0.0-2.0); EOS # 0.5 (0.0-0.7); EOS % 6.9 % (0-4.0); GRAN # 3.2 (1.4-6.5); GRAN % 48.7 % (42.2-75.2); LYMPH # 2.2 (1.2-3.4); LYMPH % 33.2 % (20.0-51.0); MEAN CELL VOLUME 96 fl (80.0-100.0); MEAN CORPUSCULAR HGB CONC 32 g/dl (33.0-37.0); MONO # 0.7 (0.1-0.6); MONO % 10.3 % (1.7-9.3); PLATELET COUNT 351 K/mm3 (130-400); RED BLOOD COUNT 2.81 M/mm3 (4.10-5.30); REDCELL DISTRIBUTION WIDTH-CV 12.8 % (11.5-14.5)
[2021-08-10 07:03] LABS: HEMATOCRIT 26.9 % (37.0-47.0); HEMOGLOBIN 8.5 g/dl (12.5-16.0); MEAN CORPUSCULAR HEMOGLOBIN 30 pg (27.0-31.0)
[2021-08-10 07:37] LABS: CALCIUM 9.3 mg/dL (8.4-10.2); CREATININE, serum 1.68 mg/dL (0.57-1.11)
--- NOTE | 2021-08-10 08:00 | NUR ---
PATIENT IS A&O. VSS. DENIES ANY COMPLAINTS THIS AM AND REPORTS SHE SLEPT WELL. PATIENT SEEMS EXCITED ABOUT DISCHARGING HOME LATER TODAY. HEAD TO TOE ASSESSMENT COMPLETE, SEE CHARTING. BREAKFAST TRAY AT BEDSIDE. AM BS WAS 126, NO SSI REQUIRED. AM MEDS GIVEN. NO OTHER NEEDS. CALL LIGHT IN REACH.
--- NOTE | 2021-08-10 10:00 | NUR ---
ROUNDING, SEE ORDERS.
[2021-08-10] MEDS ORDERED: PLAVIX 75MG TAB75 MG PO (10:11)
--- NOTE | 2021-08-10 10:50 | NUR ---
The patient is to discharge back home with her daughter today, 08/10, and outpatient PT/OT/ST at [facility]. SW faxed the patient's orders to [facility]. No additional needs at this time.
--- NOTE | 2021-08-10 14:14 | NUR ---
PATIENT DISCHARGING HOME WITH DAUGHTER AND OUTPATIENT THERAPIES. GAVE DISCHARGE INSTRUCTIONS, E-SCRIPTS SENT, AND DISCUSSED F/U APTS. ANSWERED QUESTIONS/CONCERNS. DC'D RIGHT WRIST IV TO INT, COVERED SITE WITH [employer]. PATIENT DRESSED, PACKED AND PERSONAL BELONGINGS SENT. PATIENT ESCORTED OUT.
--- NOTE | 2021-08-10 14:18 | NUR ---
Discharge QIM scores were reviewed by the team. Code of 6 chosen for toilet hygiene was determined by team discussion to be the most usual performance for this patient during the assessment period. Code of 4 chosen for toileting transfers was determined by team discussion to be the most usual performance for this patient during the assessment period. Code of 6 chosen for shower/bathe self was determined by team discussion to be the most usual performance for this patient during the assessment period. Code of 4 for sit to stand was determined by team discussion to be the most usual performance for this patient during the assessment period.--Estrellita Lopez, PD
--- NOTE | 2021-08-10 14:34 | NUR ---
The patient's RN notified [facility]ER that the patient is stating that she does not have a FWW. GREER met with the patient and her daughter, Aminata, to follow up. The patient and Aminata report that she had a walker, but that it ended up getting thrown away when her belongings were being moved to the daughter's home. The patient and Aminata were agreeable with getting a new FWW from [facility] and picking the FWW up from [facility] after they leave the hospital. GREER notified and faxed and emailed the FWW order to [facility]. GREER updated the patient's RN. No additional needs at this time.
[2021-09-03] MEDS ORDERED: CIPRO 250MG TA250 MG PO (16:48)
== END 2021-08-10 14:15 | disposition home or self-care (01) | DRG 57 ==
LOC: UNDOADMIN 18:53 → MEDICAL 18:53
PROVIDERS: Physician Assistant; Student in an Organized Health Care Education/Training Program; ADMIT Internal Medicine
DX: I69.354 Hemiplegia and hemiparesis following cerebral infarction affecting left non-dominant side (principal); N39.0 Urinary tract infection, site not specified; E87.1 Hypo-osmolality and hyponatremia; N17.9 Acute kidney failure, unspecified; I69.392 Facial weakness following cerebral infarction; I69.322 Dysarthria following cerebral infarction; I69.391 Dysphagia following cerebral infarction; R13.12 Dysphagia, oropharyngeal phase; I10 Essential (primary) hypertension; E78.5 Hyperlipidemia, unspecified; E11.22 Type 2 diabetes mellitus with diabetic chronic kidney disease; N18.30 Chronic kidney disease, stage 3 unspecified; R26.89 Other abnormalities of gait and mobility; F17.210 Nicotine dependence, cigarettes, uncomplicated; W19.XXXD Unspecified fall, subsequent encounter; Z79.84 Long term (current) use of oral hypoglycemic drugs; Z79.82 Long term (current) use of aspirin; Z79.899 Other long term (current) drug therapy; Z73.6 Limitation of activities due to disability; Z79.891 Long term (current) use of opiate analgesic; R11.2 Nausea with vomiting, unspecified
CPT/HCPCS: 99223-AI; 99232-AI; 99233-AI; 99239; G0378; J1644; J1650; J1815; J7030

== ENCOUNTER 2021-09-01 14:03 | Emergency (ER) | payer MEDICAID ==
[~2021-09-01] VITALS: Ht 167.6 cm; Wt 84.1 kg
[2021-09-01 14:06] VITALS: TEMP 97.9
[2021-09-01 14:52] LABS: BASO % 0.4 % (0.0-2.0); EOS # 0.3 K/mm3 (0.0-0.7); EOS % 4.2 % (0-4.0); GRAN # 4.5 K/mm3 (1.4-6.5); GRAN % 60.9 % (42.2-75.2); HEMOGLOBIN 10.4 g/dl (12.5-16.0); LYMPH # 1.9 K/mm3 (1.2-3.4); MEAN CELL VOLUME 97 fl (80.0-100.0); MEAN CORPUSCULAR HEMOGLOBIN 30 pg (27.0-31.0); MEAN CORPUSCULAR HGB CONC 31 g/dl (33.0-37.0); MEAN PLATELET VOLUME 11.2 fl (7.4-10.4); MONO # 0.6 K/mm3 (0.1-0.6); MONO % 8.4 % (1.7-9.3); PLATELET COUNT 326 K/mm3 (130-400); RED BLOOD COUNT 3.42 M/mm3 (4.10-5.30)
[2021-09-01 14:53] LABS: HEMATOCRIT 33.3 % (37.0-47.0)
[2021-09-01 15:08] LABS: ALBUMIN 3.4 gm/dL (3.4-4.8); BILIRUBIN,TOTAL 0.2 mg/dL (0.2-1.2); CALCIUM 9.9 mg/dL (8.4-10.2); CREATININE, serum 1.55 mg/dL (0.57-1.11); POTASSIUM 4.6 mmol/L (3.5-4.5); TOTAL PROTEIN 8.5 gm/dL (6.2-8.1)
[2021-09-01 15:14] LABS: TROPONIN-I 0.03 ng/mL (0.00-0.033)
[2021-09-01 16:16] LABS: COLLECTION METHOD CLEAN CATCH
[2021-09-01 16:25] LABS: PH 5 (5-8); SQUAMOUS EPITHELIAL 0-2 /hpf; URINE APPEARANCE Turbid; URINE BACTERIA Many /hpf; URINE BILIRUBIN Negative (NEGATIVE); URINE BLOOD Negative (NEGATIVE); URINE COLOR Amber; URINE GLUCOSE 1+ (NEGATIVE); URINE KETONE Negative (NEGATIVE); URINE LEUKOCYTE ESTERASE 3+ (NEGATIVE); URINE NITRATE Negative (NEGATIVE); URINE PROTEIN(semi-quant) 1+ (NEGATIVE); URINE RBC 20-50 /hpf; URINE UROBILINOGEN Negative (NEGATIVE)
[2021-09-01] MEDS ORDERED: CEPHALEXIN500 M1 PO (16:42)
[2021-09-01 18:19] VITALS: BP 140/86; PULSE 88
[2021-09-03] MEDS ORDERED: CIPRO 250MG TA250 MG PO (16:48)
== END 2021-09-01 18:20 | disposition home or self-care (01) ==
LOC: COL.ER
PROVIDERS: Student in an Organized Health Care Education/Training Program
DX: E11.22 Type 2 diabetes mellitus with diabetic chronic kidney disease (principal); N18.30 Chronic kidney disease, stage 3 unspecified; H49.00 Third [oculomotor] nerve palsy, unspecified eye; F17.200 Nicotine dependence, unspecified, uncomplicated; Z79.84 Long term (current) use of oral hypoglycemic drugs
CPT/HCPCS: J0696

== ENCOUNTER 2022-01-12 09:54 | Emergency (ER) | payer MEDICAID ==
[~2022-01-12] VITALS: Ht 167.6 cm; Wt 84.1 kg
[~2022-01-12 09:54] MED LIST changes: +CEPHALEXIN500 M1 PO; +CIPRO 250MG TA250 MG PO
[2022-01-12 09:56] VITALS: BP 140/82; TEMP 99.3
[2022-01-12 10:13] LABS: BASO # 0.1 K/mm3 (0.0-0.2); BASO % 0.5 % (0.0-2.0); EOS # 0.1 K/mm3 (0.0-0.7); EOS % 0.7 % (0.0-4.0); GRAN # 7.2 K/mm3 (1.4-6.5); HEMOGLOBIN 11.1 g/dl (12.5-16.0); LYMPH # 1.7 K/mm3 (1.2-3.4); LYMPH % 17.6 % (20.0-51.0); MEAN CELL VOLUME 91 fl (80.0-100.0); MEAN CORPUSCULAR HEMOGLOBIN 30 pg (27-31); MEAN CORPUSCULAR HGB CONC 33 g/dl (33.0-37.0); MEAN PLATELET VOLUME 10.6 fl (7.4-10.4); MONO # 0.8 K/mm3 (0.1-0.6); MONO % 7.9 % (1.7-9.3); PLATELET COUNT 380 K/mm3 (130-400); RED BLOOD COUNT 3.72 M/mm3 (4.10-5.30); REDCELL DISTRIBUTION WIDTH-CV 13.2 % (11.5-14.5)
[2022-01-12 10:15] LABS: HEMATOCRIT 33.8 % (37.0-47.0)
[2022-01-12 10:31] LABS: ALBUMIN 3.4 gm/dL (3.4-4.8); BILIRUBIN,TOTAL 0.4 mg/dL (0.2-1.2); CALCIUM 9.4 mg/dL (8.4-10.2); CREATININE, serum 1.34 mg/dL (0.57-1.11); POTASSIUM 3.9 mmol/L (3.5-4.5); TOTAL PROTEIN 8.2 gm/dL (6.2-8.1)
[2022-01-12 10:37] LABS: TROPONIN-I 0.011 ng/mL (0.00-0.033)
[2022-01-12] MEDS ORDERED: AMOXICILLIN 8751 TAB PO (11:18)
[2022-01-12 11:56] VITALS: PULSE 84
== END 2022-01-12 12:14 | disposition short-term general hospital (02) ==
LOC: COL.ER 09:54
PROVIDERS: Physician Assistant
DX: J32.0 Chronic maxillary sinusitis (principal); N18.30 Chronic kidney disease, stage 3 unspecified; D64.9 Anemia, unspecified; K08.9 Disorder of teeth and supporting structures, unspecified; H50.9 Unspecified strabismus; F17.210 Nicotine dependence, cigarettes, uncomplicated; Z20.822 Contact with and (suspected) exposure to COVID-19

== ENCOUNTER 2022-01-20 06:39 | Emergency (ER) | payer MEDICAID ==
[~2022-01-20] VITALS: Ht 160 cm; Wt 84.1 kg
[~2022-01-20 06:39] MED LIST changes: +AMOXICILLIN 8751 TAB PO
[2022-01-20 06:41] VITALS: BP 149/97; TEMP 97.6
[2022-01-20 07:10] VITALS: PULSE 85
== END 2022-01-20 07:10 | disposition home or self-care (01) ==
LOC: COL.ER 06:39
DX: R04.0 Epistaxis (principal); F17.210 Nicotine dependence, cigarettes, uncomplicated; Z79.02 Long term (current) use of antithrombotics/antiplatelets

== ENCOUNTER 2022-01-23 17:17 | Emergency (ER) | payer MEDICAID ==
[~2022-01-23] VITALS: Ht 160 cm; Wt 84.1 kg
[2022-01-23 17:18] VITALS: BP 139/54; TEMP 98.1
[2022-01-23 17:58] VITALS: PULSE 73
== END 2022-01-23 18:05 | disposition home or self-care (01) ==
LOC: COL.ER 17:17
DX: R04.0 Epistaxis (principal); F17.210 Nicotine dependence, cigarettes, uncomplicated; Z79.01 Long term (current) use of anticoagulants

== ENCOUNTER 2022-06-06 09:18 | Emergency (ER) | payer MEDICAID ==
[~2022-06-06] VITALS: Ht 160 cm; Wt 85.5 kg
[2022-06-06 09:20] VITALS: TEMP 97.9
[2022-06-06 10:23] LABS: HEMOGLOBIN 11.6 g/dl (12.5-16.0); MEAN CELL VOLUME 92 fl (80.0-100.0); MEAN CORPUSCULAR HEMOGLOBIN 29 pg (27-31); MEAN CORPUSCULAR HGB CONC 32 g/dl (33.0-37.0); MEAN PLATELET VOLUME 11.1 fl (7.4-10.4); PLATELET COUNT 288 K/mm3 (130-400); RED BLOOD COUNT 3.95 M/mm3 (4.10-5.30); REDCELL DISTRIBUTION WIDTH-CV 14.6 % (11.5-14.5)
[2022-06-06 10:29] LABS: HEMATOCRIT 36.4 % (37.0-47.0)
[2022-06-06 10:35] LABS: ALBUMIN 3.3 gm/dL (3.4-4.8); ANION GAP 10 mmol/L (7-16); BLOOD UREA NITROGEN 23 mg/dL (10-20); CALCIUM 9.4 mg/dL (8.4-10.2); CARBON DIOXIDE 25 mmol/L (23-31); CHLORIDE 106 mmol/L (98-107); CREATININE, serum 1.42 mg/dL (0.57-1.11); GLUCOSE 139 mg/dL (70-99); PHOSPHOROUS 3.4 mg/dL (2.3-4.7); SODIUM 141 mmol/L (136-145)
[2022-06-06 10:44] LABS: TROPONIN-I < 0.010 ng/mL (0.00-0.033)
[2022-06-06 10:48] LABS: BAND 1 % (0-10); EOSINOPHIL 2 % (0-4); LYMPHOCYTE 22 % (20.0-51.0); NEUTROPHILS 69 % (42.0-75.2); PLATELET ESTIMATE NORMAL (NORMAL)
[2022-06-06 10:49] LABS: ANISOCYTOSIS 1+
[2022-06-06 10:50] LABS: MICROCYTOSIS 1+
[2022-06-06 12:31] VITALS: BP 119/99; PULSE 66
== END 2022-06-06 12:45 | disposition home or self-care (01) ==
LOC: COL.ER 09:18
PROVIDERS: Emergency Medicine
DX: M25.552 Pain in left hip (principal); Z86.73 Personal history of transient ischemic attack (TIA), and cerebral infarction without residual deficits; Z79.01 Long term (current) use of anticoagulants; Z28.311 Partially vaccinated for COVID-19; W01.0XXA Fall on same level from slipping, tripping and stumbling without subsequent striking against object, initial encounter; Y92.009 Unspecified place in unspecified non-institutional (private) residence as the place of occurrence of the external cause

== ENCOUNTER 2022-07-06 10:47 | Emergency (ER) | payer MEDICAID ==
[~2022-07-06] VITALS: Ht 162.6 cm; Wt 86.4 kg
[2022-07-06 10:48] VITALS: TEMP 97.4
[2022-07-06 11:02] LABS: BASO % 0.4 % (0.0-2.0); EOS # 0.1 K/mm3 (0.0-0.7); EOS % 1.7 % (0.0-4.0); GRAN # 5.5 K/mm3 (1.4-6.5); LYMPH # 1.9 K/mm3 (1.2-3.4); MEAN CELL VOLUME 93 fl (80.0-100.0); MEAN CORPUSCULAR HEMOGLOBIN 29 pg (27-31); MEAN CORPUSCULAR HGB CONC 31 g/dl (33.0-37.0); MEAN PLATELET VOLUME 11.1 fl (7.4-10.4); MONO # 0.6 K/mm3 (0.1-0.6); MONO % 6.8 % (1.7-9.3); PLATELET COUNT 304 K/mm3 (130-400); RED BLOOD COUNT 3.75 M/mm3 (4.10-5.30); REDCELL DISTRIBUTION WIDTH-CV 14.6 % (11.5-14.5)
[2022-07-06 11:19] LABS: ALBUMIN 3.2 gm/dL (3.4-4.8); ANION GAP 11 mmol/L (7-16); BLOOD UREA NITROGEN 22 mg/dL (10-20); CALCIUM 9.1 mg/dL (8.4-10.2); CARBON DIOXIDE 23 mmol/L (23-31); CHLORIDE 105 mmol/L (98-107); CREATININE, serum 1.36 mg/dL (0.57-1.11); GLUCOSE 136 mg/dL (70-99); PHOSPHOROUS 3.3 mg/dL (2.3-4.7); POTASSIUM 3.8 mmol/L (3.5-4.5); SODIUM 139 mmol/L (136-145)
[2022-07-06 11:24] LABS: ALCOHOL(ethanol),MEDICAL < 10 mg/dL (0-10)
[2022-07-06 11:28] LABS: TROPONIN-I < 0.010 ng/mL (0.00-0.033)
[2022-07-06 11:40] LABS: COLLECTION METHOD CLEAN CATCH
[2022-07-06 11:56] LABS: URINE BACTERIA None Seen /hpf (NONE SEEN); URINE RBC 0-2 /hpf (0-2)
[2022-07-06 12:00] LABS: PH 6 (5-8); URINE APPEARANCE Clear (CLEAR/HAZY); URINE BLOOD Negative (NEGATIVE); URINE COLOR Yellow (YELLOW); URINE GLUCOSE Negative (NEGATIVE); URINE KETONE Negative (NEGATIVE); URINE NITRATE Negative (NEGATIVE); URINE PROTEIN(semi-quant) Negative (NEGATIVE); URINE UROBILINOGEN 0.2 (NEGATIVE)
[2022-07-06 12:45] VITALS: BP 141/85; PULSE 73
[2022-07-13] MEDS ORDERED: LYRICA 100MG C100 M1 PO (17:20)
[2022-07-13] MEDS ORDERED: NORVASC 10MG10 MG PO (17:21)
[2022-07-13] MEDS ORDERED: ROXICODONE 55 MG/TAB PO (21:17)
[2022-07-13] MEDS ORDERED: GLUCOPHAGE1000 MG PO (21:18)
[2022-07-16] MEDS ORDERED: LIPITOR 80MG80 MG PO (08:49)
[2022-07-16] MEDS ORDERED: PRINIVIL5 MG PO (08:51)
== END 2022-07-06 13:00 | disposition home or self-care (01) ==
LOC: COL.ER 10:47
PROVIDERS: Emergency Medicine
DX: M25.552 Pain in left hip (principal); Z86.73 Personal history of transient ischemic attack (TIA), and cerebral infarction without residual deficits; Z79.01 Long term (current) use of anticoagulants; W18.30XA Fall on same level, unspecified, initial encounter; Y92.009 Unspecified place in unspecified non-institutional (private) residence as the place of occurrence of the external cause
CPT/HCPCS: J7030

== ENCOUNTER 2022-07-10 09:19 | Emergency (ER) | payer MEDICAID ==
[~2022-07-10] VITALS: Ht 162.6 cm; Wt 86.4 kg
[2022-07-10 09:21] VITALS: TEMP 97.9
[2022-07-10 10:23] LABS: BASO % 0.4 % (0.0-2.0); EOS # 0.1 K/mm3 (0.0-0.7); EOS % 1.6 % (0.0-4.0); GRAN # 3.4 K/mm3 (1.4-6.5); GRAN % 61.4 % (42.2-75.2); HEMOGLOBIN 11.4 g/dl (12.5-16.0); LYMPH # 1.6 K/mm3 (1.2-3.4); LYMPH % 28.7 % (20.0-51.0); MEAN CELL VOLUME 90 fl (80.0-100.0); MEAN CORPUSCULAR HEMOGLOBIN 29 pg (27-31); MEAN CORPUSCULAR HGB CONC 32 g/dl (33.0-37.0); MEAN PLATELET VOLUME 10.8 fl (7.4-10.4); MONO # 0.4 K/mm3 (0.1-0.6); MONO % 7.5 % (1.7-9.3); PLATELET COUNT 321 K/mm3 (130-400); RED BLOOD COUNT 3.95 M/mm3 (4.10-5.30); REDCELL DISTRIBUTION WIDTH-CV 14.4 % (11.5-14.5)
[2022-07-10 10:24] LABS: HEMATOCRIT 35.7 % (37.0-47.0)
[2022-07-10 10:30] LABS: PROTHROMBIN TIME 11.9 SECONDS (9.7-12.8)
[2022-07-10 10:39] LABS: ALBUMIN 3.4 gm/dL (3.4-4.8); BILIRUBIN,TOTAL 0.4 mg/dL (0.2-1.2); CALCIUM 9.5 mg/dL (8.4-10.2); CREATININE, serum 1.36 mg/dL (0.57-1.11); POTASSIUM 4.1 mmol/L (3.5-4.5); TOTAL PROTEIN 7.7 gm/dL (6.2-8.1)
[2022-07-10 13:13] VITALS: BP 182/89; PULSE 74
[2022-07-13] MEDS ORDERED: LYRICA 100MG C100 M1 PO (17:20)
[2022-07-13] MEDS ORDERED: NORVASC 10MG10 MG PO (17:21)
[2022-07-13] MEDS ORDERED: ROXICODONE 55 MG/TAB PO (21:17)
[2022-07-13] MEDS ORDERED: GLUCOPHAGE1000 MG PO (21:18)
[2022-07-16] MEDS ORDERED: LIPITOR 80MG80 MG PO (08:49)
[2022-07-16] MEDS ORDERED: PRINIVIL5 MG PO (08:51)
== END 2022-07-10 13:13 | disposition home or self-care (01) ==
LOC: COL.ER 09:19
PROVIDERS: Personal Emergency Response Attendant
DX: H53.8 Other visual disturbances (principal); R42 Dizziness and giddiness; F17.210 Nicotine dependence, cigarettes, uncomplicated; Z86.73 Personal history of transient ischemic attack (TIA), and cerebral infarction without residual deficits; Z79.02 Long term (current) use of antithrombotics/antiplatelets; Z79.82 Long term (current) use of aspirin
CPT/HCPCS: Q9967

== ENCOUNTER 2022-07-12 08:19 | Emergency (ER) | payer MEDICAID ==
[~2022-07-12] VITALS: Ht 162.6 cm; Wt 86.4 kg
[2022-07-12 08:25] VITALS: TEMP 97.8
[2022-07-12 09:34] LABS: BASO % 0.4 % (0.0-2.0); EOS # 0.1 K/mm3 (0.0-0.7); EOS % 1.4 % (0.0-4.0); GRAN # 4.9 K/mm3 (1.4-6.5); GRAN % 68.2 % (42.2-75.2); HEMOGLOBIN 11.8 g/dl (12.5-16.0); LYMPH # 1.6 K/mm3 (1.2-3.4); LYMPH % 21.6 % (20.0-51.0); MEAN CELL VOLUME 92 fl (80.0-100.0); MEAN CORPUSCULAR HEMOGLOBIN 29 pg (27-31); MEAN CORPUSCULAR HGB CONC 32 g/dl (33.0-37.0); MEAN PLATELET VOLUME 11.3 fl (7.4-10.4); MONO # 0.6 K/mm3 (0.1-0.6); MONO % 8.3 % (1.7-9.3); PLATELET COUNT 337 K/mm3 (130-400); RED BLOOD COUNT 4.02 M/mm3 (4.10-5.30); REDCELL DISTRIBUTION WIDTH-CV 14.5 % (11.5-14.5)
[2022-07-12 09:35] LABS: HEMATOCRIT 36.8 % (37.0-47.0)
[2022-07-12 09:45] LABS: ALBUMIN 3.5 gm/dL (3.4-4.8); BILIRUBIN,TOTAL 0.3 mg/dL (0.2-1.2); CALCIUM 9.5 mg/dL (8.4-10.2); CREATININE, serum 1.67 mg/dL (0.57-1.11); POTASSIUM 3.8 mmol/L (3.5-4.5); TOTAL PROTEIN 8.2 gm/dL (6.2-8.1)
[2022-07-12 09:51] LABS: TROPONIN-I 0.012 ng/mL (0.00-0.033)
[2022-07-12 11:15] LABS: COLLECTION METHOD CLEAN CATCH
[2022-07-12 11:29] LABS: URINE APPEARANCE Clear (CLEAR/HAZY); URINE BLOOD TRACE-INTACT (NEGATIVE); URINE COLOR Yellow (YELLOW); URINE GLUCOSE Negative (NEGATIVE); URINE KETONE TRACE (NEGATIVE); URINE NITRATE Negative (NEGATIVE); URINE PROTEIN(semi-quant) 1+ (NEGATIVE); URINE UROBILINOGEN 0.2 E.U/dL (0.2-1.0)
[2022-07-12 11:40] VITALS: BP 134/91
[2022-07-12 12:57] VITALS: PULSE 78
--- NOTE | 2022-07-12 13:08 | NUR ---
dye house worker spoke with patient's daughter, Aminata Jimenez, and discuss possible need for a higher level of care. Patient resides with Aminata and Aminata's son. Aminata states that patient is able to transfer and move about the apartment when she is not experiencing a dizzy spell. Aminata stated that patient had a visit with Dr Escalante last week and outpatient therapy appointments were set up at [facility] for the dizziness. Worker advised that patient has been seen 4 times in the last month. Patient plans to return back to her home with family and another appointment has been arranged with Dr Escalante for 07/17/22 at 2:00pm. Worker advised that patient's insurance will not pay for home health in the home. Worker provided patient with [employer] transportation home around 1:30 and confirmed that Aminata's son will be available to assist patient in the home. Worker provided Aminata with the number to schedule [employer] covered transportation to appointments as needed.
[2022-07-13] MEDS ORDERED: LYRICA 100MG C100 M1 PO (17:20)
[2022-07-13] MEDS ORDERED: NORVASC 10MG10 MG PO (17:21)
[2022-07-13] MEDS ORDERED: ROXICODONE 55 MG/TAB PO (21:17)
[2022-07-13] MEDS ORDERED: GLUCOPHAGE1000 MG PO (21:18)
[2022-07-16] MEDS ORDERED: LIPITOR 80MG80 MG PO (08:49)
[2022-07-16] MEDS ORDERED: PRINIVIL5 MG PO (08:51)
== END 2022-07-12 12:57 | disposition home or self-care (01) ==
LOC: COL.ER 08:19
PROVIDERS: Emergency Medicine
DX: R42 Dizziness and giddiness (principal); H53.8 Other visual disturbances; F17.210 Nicotine dependence, cigarettes, uncomplicated; Z86.73 Personal history of transient ischemic attack (TIA), and cerebral infarction without residual deficits; Z79.01 Long term (current) use of anticoagulants; W18.30XA Fall on same level, unspecified, initial encounter

== ENCOUNTER 2022-07-17 11:00 | Inpatient (IN) | payer MEDICAID ==
[~2022-07-17] VITALS: Ht 162.6 cm; Wt 87.0 kg
[~2022-07-17 11:00] MED LIST changes: +LIPITOR 80MG80 MG PO; +PRINIVIL5 MG PO
[2022-07-17 15:49] VITALS: BP 126/63; PULSE 77; TEMP 97.9
[2022-07-17 17:52] VITALS: BP 135/63; PULSE 71; TEMP 98.5
[2022-07-18 05:17] VITALS: BP 110/63; PULSE 67; TEMP 98.5
[2022-07-18 13:00] VITALS: BP 135/68; PULSE 78; TEMP 97.8
[2022-07-18 17:49] VITALS: BP 116/60; PULSE 80; TEMP 97.6
[2022-07-18 21:21] LABS: COLLECTION METHOD CATHETER
[2022-07-18 21:32] LABS: URINE APPEARANCE Clear (CLEAR/HAZY); URINE BLOOD Negative (NEGATIVE); URINE COLOR Yellow (YELLOW); URINE GLUCOSE Negative (NEGATIVE); URINE KETONE Negative (NEGATIVE); URINE NITRATE Negative (NEGATIVE); URINE PROTEIN(semi-quant) Negative (NEGATIVE); URINE UROBILINOGEN 0.2 E.U/dL (0.2-1.0)
[2022-07-18 21:35] LABS: SQUAMOUS EPITHELIAL None Seen /hpf (0-10); URINE BACTERIA None Seen /hpf (NONE SEEN); URINE RBC 0-2 /hpf (0-2)
[2022-07-19 05:57] VITALS: BP 126/65; PULSE 65; TEMP 98.1
[2022-07-19 16:35] VITALS: BP 132/62; PULSE 82; TEMP 98.1
[2022-07-20 05:13] VITALS: BP 124/64; PULSE 77; TEMP 97.4
[2022-07-20 17:48] VITALS: BP 130/66; PULSE 86; TEMP 97.4
[2022-07-21 05:43] VITALS: BP 99/48; PULSE 68; TEMP 97.8
[2022-07-21 17:21] VITALS: BP 126/82; PULSE 79; TEMP 98
[2022-07-22 06:11] VITALS: BP 112/62; PULSE 68; TEMP 97.4
[2022-07-22 17:04] VITALS: BP 124/74; PULSE 83; TEMP 98
[2022-07-23 06:06] VITALS: BP 167/65; PULSE 75; TEMP 98.8
[2022-07-23 16:53] VITALS: BP 112/60; PULSE 79; TEMP 98.2
[2022-07-23 18:44] LABS: COLLECTION METHOD CLEAN CATCH
[2022-07-23 18:51] LABS: URINE APPEARANCE Cloudy (CLEAR/HAZY); URINE COLOR Yellow (YELLOW)
[2022-07-23 18:53] LABS: PH 8.5 (5.0-8.5); URINE GLUCOSE Negative (NEGATIVE); URINE KETONE Negative (NEGATIVE); URINE PROTEIN(semi-quant) 1+ (NEGATIVE)
[2022-07-23 18:54] LABS: URINE BLOOD 2+ (NEGATIVE); URINE NITRATE Negative (NEGATIVE); URINE UROBILINOGEN 0.2 E.U/dL (0.2-1.0)
[2022-07-23 18:57] LABS: URINE BACTERIA Rare /hpf (NONE SEEN); URINE WBC >50 /hpf (0-2)
[2022-07-24 05:30] VITALS: BP 122/61; PULSE 70; TEMP 98.6
[2022-07-24 17:27] VITALS: BP 146/60; PULSE 86; TEMP 98
[2022-07-25 05:41] VITALS: BP 109/58; PULSE 68; TEMP 98
[2022-07-25 17:19] VITALS: BP 139/73; PULSE 83; TEMP 98.4
[2022-07-26 04:14] VITALS: BP 124/64; PULSE 72; TEMP 98.2
[2022-07-26 16:35] VITALS: BP 124/64; PULSE 83; TEMP 97.8
[2022-07-27 06:08] VITALS: BP 108/63; PULSE 67; TEMP 98.3
[2022-07-27 17:15] VITALS: BP 105/57; PULSE 76; TEMP 98
[2022-07-28 05:50] VITALS: BP 138/56; PULSE 66; TEMP 97.6
[2022-07-28 16:58] VITALS: BP 109/70; PULSE 72; TEMP 97.9
[2022-07-29 05:50] VITALS: BP 115/64; PULSE 66; TEMP 97.5
[2022-07-29 17:43] VITALS: BP 142/71; PULSE 89; TEMP 98.3
[2022-07-30 05:02] VITALS: BP 109/52; PULSE 74; TEMP 98.4
[2022-07-30 06:34] LABS: CALCIUM 8.9 mg/dL (8.4-10.2); CREATININE, serum 2.09 mg/dL (0.57-1.11)
[2022-07-30 06:38] LABS: POTASSIUM 5.9 mmol/L (3.5-4.5)
[2022-07-30 10:33] LABS: CALCIUM 9.3 mg/dL (8.4-10.2); CREATININE, serum 2.07 mg/dL (0.57-1.11); POTASSIUM 5.6 mmol/L (3.5-4.5)
[2022-07-30 13:07] LABS: CALCIUM 9.6 mg/dL (8.4-10.2); CREATININE, serum 1.91 mg/dL (0.57-1.11)
[2022-07-30 13:18] LABS: POTASSIUM 5.9 mmol/L (3.5-4.5)
[2022-07-30 14:57] LABS: CALCIUM 9.5 mg/dL (8.4-10.2); CREATININE, serum 1.95 mg/dL (0.57-1.11)
[2022-07-30 16:22] VITALS: BP 133/69; PULSE 78; TEMP 97.9
[2022-07-30 16:50] LABS: CALCIUM 9.4 mg/dL (8.4-10.2); CREATININE, serum 1.94 mg/dL (0.57-1.11); POTASSIUM 5.7 mmol/L (3.5-4.5)
[2022-07-30 18:41] LABS: CALCIUM 9.1 mg/dL (8.4-10.2); CREATININE, serum 1.84 mg/dL (0.57-1.11); POTASSIUM 5.4 mmol/L (3.5-4.5)
[2022-07-30 20:19] VITALS: BP 107/53; PULSE 72; TEMP 98
[2022-07-30 20:38] LABS: CALCIUM 9.3 mg/dL (8.4-10.2); CREATININE, serum 1.8 mg/dL (0.57-1.11); POTASSIUM 5.6 mmol/L (3.5-4.5)
[2022-07-30 22:46] LABS: CALCIUM 8.5 mg/dL (8.4-10.2); CREATININE, serum 1.57 mg/dL (0.57-1.11); POTASSIUM 5.2 mmol/L (3.5-4.5)
[2022-07-31] VITALS (7 sets, daily range): BP systolic 107–149; BP diastolic 45–76; PULSE 73–89; TEMP 97.7–98.7
[2022-07-31 06:27] LABS: CALCIUM 8.7 mg/dL (8.4-10.2); CREATININE, serum 1.65 mg/dL (0.57-1.11); POTASSIUM 5.4 mmol/L (3.5-4.5)
[2022-07-31 06:46] LABS: BASO % 0.4 % (0.0-2.0); EOS # 0.2 K/mm3 (0.0-0.7); EOS % 3.4 % (0.0-4.0); GRAN # 3.9 K/mm3 (1.4-6.5); GRAN % 55.3 % (42.2-75.2); LYMPH # 2.2 K/mm3 (1.2-3.4); MEAN CELL VOLUME 94 fl (80.0-100.0); MEAN CORPUSCULAR HGB CONC 33 g/dl (33.0-37.0); MEAN PLATELET VOLUME 12.1 fl (7.4-10.4); MONO # 0.6 K/mm3 (0.1-0.6); MONO % 8.6 % (1.7-9.3); PLATELET COUNT 211 K/mm3 (130-400); RED BLOOD COUNT 2.77 M/mm3 (4.10-5.30); REDCELL DISTRIBUTION WIDTH-CV 14.8 % (11.5-14.5)
[2022-07-31 06:48] LABS: HEMATOCRIT 26.1 % (37.0-47.0); HEMOGLOBIN 8.5 g/dl (12.5-16.0); MEAN CORPUSCULAR HEMOGLOBIN 31 pg (27-31)
[2022-07-31 15:56] LABS: CALCIUM 9.1 mg/dL (8.4-10.2); CREATININE, serum 1.7 mg/dL (0.57-1.11); POTASSIUM 5.2 mmol/L (3.5-4.5)
[2022-08-01 00:06] VITALS: BP 139/61; PULSE 80
[2022-08-01 03:45] VITALS: BP 138/58; PULSE 72; TEMP 97.9
[2022-08-01 06:41] LABS: CALCIUM 8.7 mg/dL (8.4-10.2); CREATININE, serum 1.54 mg/dL (0.57-1.11); POTASSIUM 4.9 mmol/L (3.5-4.5)
[2022-08-01] MEDS ORDERED: LIPITOR 80MG80 MG PO (09:16)
[2022-08-01] MEDS ORDERED: PLAVIX 75MG TAB75 MG PO (09:16)
[2022-08-01] MEDS ORDERED: ASPIRIN E.C. 8181 MG PO (09:17)
[2022-08-01] MEDS ORDERED: NORVASC 10MG10 MG PO (09:17)
[2022-08-01] MEDS ORDERED: JANUVIA25 MG PO (09:18)
[2022-08-01] MEDS ORDERED: LYRICA 75MG CAP75 MG PO (09:19)
== END 2022-08-01 12:45 | disposition home or self-care (01) | DRG 57 ==
PROVIDERS: Physician Assistant; ADMIT Physical Medicine & Rehabilitation Sports Medicine
DX: I69.351 Hemiplegia and hemiparesis following cerebral infarction affecting right dominant side (principal); N39.0 Urinary tract infection, site not specified; I12.9 Hypertensive chronic kidney disease with stage 1 through stage 4 chronic kidney disease, or unspecified chronic kidney disease; R29.6 Repeated falls; I69.393 Ataxia following cerebral infarction; F17.210 Nicotine dependence, cigarettes, uncomplicated; E78.5 Hyperlipidemia, unspecified; E11.22 Type 2 diabetes mellitus with diabetic chronic kidney disease; N18.30 Chronic kidney disease, stage 3 unspecified; H53.2 Diplopia; I69.398 Other sequelae of cerebral infarction; R53.81 Other malaise; Z79.82 Long term (current) use of aspirin; Z79.899 Other long term (current) drug therapy; Z79.02 Long term (current) use of antithrombotics/antiplatelets; Z79.84 Long term (current) use of oral hypoglycemic drugs; Z73.6 Limitation of activities due to disability; E87.5 Hyperkalemia; M79.662 Pain in left lower leg; E11.649 Type 2 diabetes mellitus with hypoglycemia without coma; R33.9 Retention of urine, unspecified
CPT/HCPCS: J0610; J1644; J1650; J1815; J2550; J7030

== ENCOUNTER 2022-08-07 16:12 | Emergency (ER) | payer MEDICAID ==
[~2022-08-07] VITALS: Ht 162.6 cm; Wt 86.4 kg
[~2022-08-07 16:12] MED LIST changes: +JANUVIA25 MG PO; +LYRICA 75MG CAP75 MG PO
[2022-08-07 16:15] VITALS: TEMP 98
[2022-08-07 16:46] LABS: BASO % 0.4 % (0.0-2.0); EOS # 0.1 K/mm3 (0.0-0.7); EOS % 1.7 % (0.0-4.0); GRAN # 3.4 K/mm3 (1.4-6.5); GRAN % 65.3 % (42.2-75.2); LYMPH # 1.3 K/mm3 (1.2-3.4); LYMPH % 25.4 % (20.0-51.0); MEAN CELL VOLUME 90 fl (80.0-100.0); MEAN CORPUSCULAR HGB CONC 32 g/dl (33.0-37.0); MEAN PLATELET VOLUME 11.1 fl (7.4-10.4); MONO # 0.4 K/mm3 (0.1-0.6); MONO % 6.8 % (1.7-9.3); PLATELET COUNT 353 K/mm3 (130-400); RED BLOOD COUNT 3.24 M/mm3 (4.10-5.30); REDCELL DISTRIBUTION WIDTH-CV 15.1 % (11.5-14.5)
[2022-08-07 16:47] LABS: HEMATOCRIT 29.3 % (37.0-47.0); HEMOGLOBIN 9.5 g/dl (12.5-16.0); MEAN CORPUSCULAR HEMOGLOBIN 29 pg (27-31)
[2022-08-07 17:05] LABS: ALBUMIN 3.5 gm/dL (3.4-4.8); BILIRUBIN,TOTAL 0.3 mg/dL (0.2-1.2); C-REACTIVE PROTEIN 0.54 mg/dL (0.00-0.50); CALCIUM 9.3 mg/dL (8.4-10.2); CREATININE, serum 1.66 mg/dL (0.57-1.11); POTASSIUM 4.3 mmol/L (3.5-4.5)
[2022-08-07 17:10] LABS: TROPONIN-I 0.016 ng/mL (0.00-0.033)
[2022-08-07 19:25] VITALS: BP 139/92; PULSE 86
== END 2022-08-07 19:25 | disposition home or self-care (01) ==
LOC: COL.ER 16:12
PROVIDERS: Family Medicine
DX: I69.359 Hemiplegia and hemiparesis following cerebral infarction affecting unspecified side (principal); F17.200 Nicotine dependence, unspecified, uncomplicated
CPT/HCPCS: J7030

== ENCOUNTER 2022-08-09 16:35 | Emergency (ER) | payer MEDICAID ==
[~2022-08-09] VITALS: Ht 162.6 cm; Wt 90.9 kg
[2022-08-09 16:39] VITALS: TEMP 97.8
[2022-08-09 16:59] LABS: BASO % 0.3 % (0.0-2.0); EOS # 0.1 K/mm3 (0.0-0.7); EOS % 1.9 % (0.0-4.0); GRAN # 3.7 K/mm3 (1.4-6.5); GRAN % 59.5 % (42.2-75.2); HEMOGLOBIN 9.8 g/dl (12.5-16.0); LYMPH # 1.9 K/mm3 (1.2-3.4); LYMPH % 31.3 % (20.0-51.0); MEAN CELL VOLUME 91 fl (80.0-100.0); MEAN CORPUSCULAR HGB CONC 33 g/dl (33.0-37.0); MEAN PLATELET VOLUME 11.1 fl (7.4-10.4); MONO # 0.4 K/mm3 (0.1-0.6); MONO % 6.8 % (1.7-9.3); PLATELET COUNT 378 K/mm3 (130-400); RED BLOOD COUNT 3.29 M/mm3 (4.10-5.30); REDCELL DISTRIBUTION WIDTH-CV 15.5 % (11.5-14.5)
[2022-08-09 17:00] LABS: MEAN CORPUSCULAR HEMOGLOBIN 30 pg (27-31)
[2022-08-09 17:16] LABS: ALBUMIN 3.5 gm/dL (3.4-4.8); BILIRUBIN,TOTAL 0.4 mg/dL (0.2-1.2); CALCIUM 9.4 mg/dL (8.4-10.2); CREATININE, serum 1.65 mg/dL (0.57-1.11); POTASSIUM 4.2 mmol/L (3.5-4.5)
[2022-08-09 17:22] LABS: TROPONIN-I 0.011 ng/mL (0.00-0.033)
[2022-08-09] MEDS ORDERED: REGLAN 10MG10 MG/TAB PO (18:43)
[2022-08-09 19:00] VITALS: BP 130/61; PULSE 68
== END 2022-08-09 19:08 | disposition home or self-care (01) ==
LOC: COL.ER 16:35
PROVIDERS: Emergency Medicine
DX: R10.13 Epigastric pain (principal); E11.9 Type 2 diabetes mellitus without complications
CPT/HCPCS: J1885; J2765